=== PATIENT | male | born 1985 | race Caucasian/White ===

== ENCOUNTER 2021-07-17 14:33 | Emergency (ER) | payer OTHER, SELFPAY ==
--- NOTE | ~2021-07-17 | XR_ITS ---
EXAMINATION: 1. RADIOGRAPHS LEFT CLAVICLE 2. RADIOGRAPHS LEFT SHOULDER CLINICAL INFORMATION: Fall COMPARISON: None TECHNIQUE: Frontal view of the left clavicle and 3 views of the left shoulder were obtained. FINDINGS: Visualized portion of the proximal left humerus demonstrate no fracture. Humeral head demonstrates good articulation with the glenoid fossa. Acromioclavicular joint is normal in appearance. No fracture of the left clavicle. Visualized left-sided ribs and lung parenchyma are unremarkable. XR/XR shoulder LT min 2V IMPRESSION: Unremarkable radiographs of the left shoulder and left clavicle.
--- NOTE | ~2021-07-17 | XR_ITS ---
EXAMINATION: 1. RADIOGRAPHS LEFT CLAVICLE 2. RADIOGRAPHS LEFT SHOULDER CLINICAL INFORMATION: Fall COMPARISON: None TECHNIQUE: Frontal view of the left clavicle and 3 views of the left shoulder were obtained. FINDINGS: Visualized portion of the proximal left humerus demonstrate no fracture. Humeral head demonstrates good articulation with the glenoid fossa. Acromioclavicular joint is normal in appearance. No fracture of the left clavicle. Visualized left-sided ribs and lung parenchyma are unremarkable. XR/XR clavicle LT IMPRESSION: Unremarkable radiographs of the left shoulder and left clavicle.
[2021-07-17 15:56] VITALS: BP 116/79; PULSE 77; RESP 18; TEMP 36.3; O2SAT 99; BMI 23.6
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
[2021-07-17] MEDS: oxyCODONE HCl Immed Release 5 MG TABLET PO (17:48)
== END 2021-07-17 17:55 | disposition home or self-care (01) ==
PROVIDERS: Emergency Provider Emergency Medicine; PCP Internal Medicine
DX: S40.012A Contusion of left shoulder, initial encounter (principal); V18.0XXA Pedal cycle driver injured in noncollision transport accident in nontraffic accident, initial encounter; Y93.9 Activity, unspecified; Y92.9 Unspecified place or not applicable; Y99.9 Unspecified external cause status
CPT/HCPCS: 73000; 73030; 99283